=== PATIENT | female | born 2000 | race African-American/Black ===

== ENCOUNTER 2019-02-02 19:24 | Emergency (ER) | payer BC ==
[~2019-02-02] VITALS: Ht 175.3 cm; Wt 88.6 kg
[2019-02-02 20:51] VITALS: BP 129/84
== END 2019-02-02 20:36 | disposition left against medical advice (07) ==
LOC: ER 19:24
DX: Z53.21 Procedure and treatment not carried out due to patient leaving prior to being seen by health care provider (principal)